=== PATIENT | female | born 1975 | race Caucasian/White ===

== ENCOUNTER 2017-04-06 20:46 | Emergency (ER) | payer OTHER ==
[~2017-04-06] VITALS: Ht 170.2 cm; Wt 136.0 kg
[2017-04-06 21:11] VITALS: BP 152/97
[2017-04-06] MEDS ORDERED: AMOXICILLIN TRIHYDRATE 250 MG CAPSULE PO ONE (22:00)
[2017-04-06] MEDS ORDERED: IBUPROFEN 800 MG TABLET PO ONE (22:00)
== END 2017-04-06 22:22 | disposition home or self-care (01) ==
LOC: EMS 20:47
DX: K04.7 Periapical abscess without sinus (principal)
CPT/HCPCS: 99283